=== PATIENT | male | born 1985 | race Hispanic/Latino ===

== ENCOUNTER 2017-06-15 13:07 | Emergency (ER) | payer SELFPAY ==
--- NOTE | 2017-06-15 15:12 | ER ---
Nurse's Notes [facility] Name: William Yang Age: 31 yrs Sex: Male : 1985 Arrival Date: 06/15/2017 Time: 13:08 Bed 12 Private MD: Diagnosis: URI with cough Presentation: 06/15 13:12 Presenting complaint: Patient states: "Thursday I started coughing and getting congested. lk1 Thursday I took some Amoxicillin from my old infection. Thursday I took more and was feeling drained. I took Zyrtec and Dimetapp for my cough and it helped. I feel fatigued when I eat and then it goes away. I think I am getting better, but I left work and need to be checked out. Maybe I have the flu.". Transition of care: patient was not received from another setting of care. Onset of symptoms was June 12, 2017. Initial Sepsis Screen: Does the patient meet any 2 criteria? No. Patient's initial sepsis screen is negative. Does the patient have a suspected source of infection? No. Patient initial sepsis screen negative. Care prior to arrival: None. 13:12 Method Of Arrival: Ambulatory lk1 13:12 Acuity: THADDEUS 4 lk1 Triage Assessment: 13:16 General: Appears in no apparent distress. General: Behavior is calm, cooperative, lk1 appropriate for age. Pain: Complains of pain in abdomen Pain currently is 8 out of 10 on a pain scale. Neuro: Reports weakness. Historical: - Allergies: 13:16 Tylenol; lk1 13:16 Aspirin; lk1 - PMHx: 13:16 GERD; lk1 - PSHx: 13:16 None; lk1 - Immunization history:: Adult Immunizations up to date. - Social history:: Smoking status: Patient/guardian denies using tobacco. Screenin:33 Abuse screen: Denies threats or abuse. Denies injuries from another. Nutritional ph screening: No deficits noted. Tuberculosis screening: No symptoms or risk factors identified. Fall Risk None identified. Assessment: 14:32 General: Appears in no apparent distress. comfortable, well groomed, Behavior is calm, ph cooperative, appropriate for age, Reports chills for 12-24 hours, Denies fever. Pain: Denies pain. Neuro: Level of Consciousness is awake, alert, obeys commands, Oriented to person, place, time, situation, Reports general weakness. Cardiovascular: Capillary refill < 3 seconds Patient's skin is warm and dry. Respiratory: Reports cough that is productive, Airway is patent Respiratory effort is even, unlabored, Respiratory pattern is regular, symmetrical, Breath sounds are clear bilaterally. Denies shortness of breath pain with cough. GI: No signs and/or symptoms were reported involving the gastrointestinal system. EENT: Reports nasal congestion nasal discharge. Derm: Skin is intact, is healthy with good turgor, Skin is pink, warm \\T\\ dry. Musculoskeletal: Circulation, motion, and sensation intact. Range of motion: intact in all extremities. 15:15 Reassessment: Verbal order by Dr. Alfonso... Dexamethasone 10 mg PO. rk2 Vital Signs: 13:17 BP 132 / 81; Pulse 101; Resp 16; Temp 97.6(TE); Pulse Ox 99% on R/A; Weight 81.65 kg lk1 (R); Height 5 ft. 6 in. (167.64 cm) (R); Pain 8/10; 13:17 Body Mass Index 29.05 (81.65 kg, 167.64 cm) lk1 ED Course: 13:08 Patient arrived in ED. as 13:15 Triage completed. lk1 13:18 Arm band placed on left wrist. lk1 14:13 Meghan Rubin, RN is Primary Nurse. ph 14:27 Edwin Alfonso MD is Attending Physician. ps1 14:34 Patient has correct armband on for positive identification. Bed in low position. Call ph light in reach. 14:34 No provider procedures requiring assistance completed. Patient did not have IV access ph during this emergency room visit. Administered Medications: 15:17 Drug: Dexamethasone 10 mg Route: PO; rk2 15:26 Follow up: Response: Given \\T\\ DC rk2 Outcome: 15:12 Discharge ordered by . ps1 15:25 Discharged to home ambulatory. rk2 15:25 Condition: good 15:25 Discharge instructions given to patient, Prescriptions given X 1. 15:26 Patient left the ED. rk2 Signatures: Lyubov Joaquin as Meghan Rubin, RN RN Rupali Pride RN RN lk1 Edwin Alfonso MD MD ps1 Krissy Hodge RN RN rk2
[2017-06-15] MEDS ORDERED: DEXAMETHASONE 10 MG/ML VIAL ONE (15:13)
--- NOTE | 2017-06-15 15:13 | EDPHYS ---
Physician Documentation [facility] Name: William Yang Age: 31 yrs Sex: Male : 1985 Arrival Date: 06/15/2017 Time: 13:08 Bed 12 Private MD: ED Physician Edwin Alfonso HPI: 06/15 15:05 This 31 yrs old Male presents to ER via Ambulatory with complaints of fatigue. ps1 15:06 The patient or guardian reports cough, flu symptoms, low-grade fever, myalgias, no ps1 appetite, sore throat. . Onset: The symptoms/episode began/occurred 4 day(s) ago. Severity of symptoms: At their worst the symptoms were mild, in the emergency department the symptoms have resolved. Modifying factors: The symptoms are alleviated by he took a couple of amoxicillin that he had at the house, a total of about 5. Started taking nyquil, a nasal medication, and some zyrtec and started feeling better. he started eating some food and just felt really fatigued and wanted to get checked out . Historical: - Allergies: 13:16 Tylenol; lk1 13:16 Aspirin; lk1 - PMHx: 13:16 GERD; lk1 - PSHx: 13:16 None; lk1 - Immunization history:: Adult Immunizations up to date. - Social history:: Smoking status: Patient/guardian denies using tobacco. ROS: 15:06 Constitutional: Negative for fever, chills, and weight loss, Eyes: Negative for injury, ps1 pain, redness, and discharge. 15:06 Cardiovascular: Negative for chest pain, palpitations, and edema, Abdomen/GI: Negative for abdominal pain, nausea, vomiting, diarrhea, and constipation, : Negative for injury, bleeding, discharge, and swelling, MS/Extremity: Negative for injury and deformity, Skin: Negative for injury, rash, and discoloration, Neuro: Negative for headache, weakness, numbness, tingling, and seizure. 15:06 Constitutional: Positive for body aches, fatigue. 15:06 ENT: Positive for sinus congestion, sore throat. 15:06 Respiratory: Positive for cough, with no reported sputum. Exam: 15:06 Constitutional: This is a well developed, well nourished patient who is awake, alert, ps1 and in no acute distress. Head/Face: Normocephalic, atraumatic. Eyes: Pupils equal round and reactive to light, extra-ocular motions intact. Lids and lashes normal. Conjunctiva and sclera are non-icteric and not injected. Chest/axilla: Normal chest wall appearance and motion. Nontender with no deformity. No lesions are appreciated. Cardiovascular: Regular rate and rhythm. No gallops, murmurs, or rubs. Normal PMI, no JVD. No pulse deficits. Respiratory: Lungs have equal breath sounds bilaterally, clear to auscultation and percussion. No rales, rhonchi or wheezes noted. No increased work of breathing, no retractions or nasal flaring. Abdomen/GI: Soft, non-tender, with normal bowel sounds. No distension or tympany. No guarding or rebound. No evidence of tenderness throughout. Skin: Warm, dry with normal turgor. Normal color with no rashes, no lesions, and no evidence of cellulitis. MS/ Extremity: Pulses equal, no cyanosis. Neurovascular intact. Full, normal range of motion. Neuro: Awake and alert, GCS 15, oriented to person, place, time, and situation. Cranial nerves II-XII grossly intact. Sensory grossly intact. Vital Signs: 13:17 BP 132 / 81; Pulse 101; Resp 16; Temp 97.6(TE); Pulse Ox 99% on R/A; Weight 81.65 kg lk1 (R); Height 5 ft. 6 in. (167.64 cm) (R); Pain 8/10; 13:17 Body Mass Index 29.05 (81.65 kg, 167.64 cm) lk1 MDM: 15:05 Patient medically screened. ps1 15:06 Data reviewed: vital signs, nurses notes. ps1 15:06 ED course: patient states that he is getting better. Will give decadron for symptoms. ps1 Took amoxicillin [employer]. Continue zyrtec. Follow up with PCP as necessary. . Administered Medications: 15:17 Drug: Dexamethasone 10 mg Route: PO; rk2 15:26 Follow up: Response: Given \T\ DC rk2 Disposition: 06/15/17 15:12 Discharged to Home. Impression: URI with cough. - Condition is Stable. - Discharge Instructions: Upper Respiratory Infection, Adult. - Prescriptions for chlorpheniramine maleate 4 mg Oral Tablet - take 1 tablet by ORAL route every 4-6 hours As needed; 30 tablet. - Medication Reconciliation Form, Thank You Letter, Antibiotic Education, Prescription Opioid Use, Work release form form. - Follow up: Private Physician; When: As needed; Reason: Recheck today's complaints, Continuance of care, Re-evaluation by your physician. Follow up: Emergency Department; When: As needed; Reason: Fever > 102 F, Trouble breathing, Worsening of condition. - Problem is an ongoing problem. - Symptoms have improved. Signatures: Rupali Pride, RN RN lk1 Edwin Alfonso MD MD ps1 Krissy Hodge RN RN rk2
[2017-06-15 15:29] VITALS: BP 132/81; TEMP 97.6; O2SAT 99
== END 2017-06-15 15:26 | disposition home or self-care (01) ==
LOC: ER 13:07
DX: J06.9 Acute upper respiratory infection, unspecified (principal); Z88.6 Allergy status to analgesic agent
CPT/HCPCS: 99283; J1100

== ENCOUNTER 2017-09-29 10:27 | Emergency (ER) | payer SELFPAY ==
--- NOTE | 2017-09-29 11:30 | ER ---
Nurse's Notes [facility] Name: William Yang Age: 32 yrs Sex: Male : 1985 Arrival Date: 09/29/2017 Time: 10:30 Bed 19 Private MD: None, None Diagnosis: Cough;Acute bronchiolitis Presentation: 09/29 10:40 Presenting complaint: Patient states: Cough for 2 weeks. Reports taking cough medicine aj last night. Patient reports that he feels run down and ill. Transition of care: patient was not received from another setting of care. Onset of symptoms was September 18, 2017. Risk Assessment: Do you want to hurt yourself or someone else? Patient reports no desire to harm self or others. Initial Sepsis Screen: Does the patient meet any 2 criteria? No. Patient's initial sepsis screen is negative. Does the patient have a suspected source of infection? No. Patient's initial sepsis screen is negative. Care prior to arrival: None. 10:40 Method Of Arrival: Ambulatory aj 10:40 Acuity: THADDEUS 4 aj Triage Assessment: 10:41 General: Appears in no apparent distress. comfortable, Behavior is calm, cooperative, aj appropriate for age. Pain: Denies pain. EENT: Reports nasal congestion nasal discharge. Neuro: Level of Consciousness is awake, alert, obeys commands, Oriented to person, place, time, situation, Appropriate for age. Respiratory: Reports cough that is persistent Airway is patent Trachea midline Respiratory effort is even, unlabored, Respiratory pattern is regular, symmetrical, Onset: The symptoms/episode began/occurred gradually, the patient has mild shortness of breath. Derm: Skin is intact, is healthy with good turgor, Skin is pink, warm \\T\\ dry. normal. Historical: - Allergies: 10:41 Aspirin; aj - Home Meds: 10:41 None [Active]; aj - PMHx: 10:41 GERD; aj - PSHx: 10:41 None; aj - Immunization history:: Adult Immunizations up to date. - Social history:: Smoking status: Patient uses tobacco products, denies chronic smoking, but will smoke occasionally, Patient uses alcohol, occasionally. - Ebola Screening: : Patient negative for fever greater than or equal to 101.5 degrees Fahrenheit, and additional compatible Ebola Virus Disease symptoms Patient denies exposure to infectious person Patient denies travel to an Ebola-affected area in the 21 days before illness onset No symptoms or risks identified at this time. - Family history:: not pertinent. Screenin:50 Abuse screen: Denies threats or abuse. Nutritional screening: No deficits noted. tw2 Tuberculosis screening: No symptoms or risk factors identified. Fall Risk None identified. Assessment: 10:49 General: Appears in no apparent distress. Behavior is calm, cooperative, appropriate tw2 for age. Pain: Complains of pain in "theres a dryness and itching in the back of my throat". Neuro: Level of Consciousness is awake, alert, obeys commands, Oriented to person, place, time, situation. Cardiovascular: Denies chest pain, shortness of breath, Heart tones S1 S2 Capillary refill < 3 seconds Patient's skin is warm and dry. Rhythm is regular. Respiratory: Reports cough that is non-productive, with itching in my throat Airway is patent Respiratory effort is even, unlabored, Respiratory pattern is regular, symmetrical, Breath sounds are clear bilaterally. GI: No signs and/or symptoms were reported involving the gastrointestinal system. Abdomen is round non-distended, Bowel sounds present X 4 quads. : No signs and/or symptoms were reported regarding the genitourinary system. EENT: No signs and/or symptoms were reported regarding the EENT system. Derm: Skin is intact, is healthy with good turgor, Skin temperature is warm. Musculoskeletal: Range of motion: intact in all extremities. 11:59 Reassessment: per Raya,Xray will be 10-15 minutes, instructed that xray is all we tw2 are waiting on. Reassessment: Patient appears in no apparent distress at this time. No changes from previously documented assessment. Patient and/or family updated on plan of care and expected duration. Pain level reassessed. Patient is alert, oriented x 3, equal unlabored respirations, skin warm/dry/pink. 12:17 Reassessment: xray done at this time, provider notified. tw2 12:26 Reassessment: Patient appears in no apparent distress at this time. No changes from tw2 previously documented assessment. Patient and/or family updated on plan of care and expected duration. Pain level reassessed. Patient is alert, oriented x 3, equal unlabored respirations, skin warm/dry/pink. Vital Signs: 10:41 BP 140 / 91; Pulse 95; Resp 16; Temp 98.2; Pulse Ox 97% on R/A; Weight 81.65 kg; Height aj 5 ft. 6 in. (167.64 cm); 11:59 BP 123 / 85; Pulse 76; Resp 17; Pulse Ox 99% on R/A; tw2 12:25 BP 120 / 91; Pulse 85; Resp 18; Pulse Ox 98% on R/A; tw2 10:41 Body Mass Index 29.05 (81.65 kg, 167.64 cm) ED Course: 10:30 Patient arrived in ED. mr 10:31 None, None is Private Physician. mr 10:41 Triage completed. aj 10:41 Arm band placed on left wrist. Patient placed in an exam room. aj 10:46 Jazz Mckinley, PEDRITO is Primary Nurse. tw2 10:48 Willie Beltrán MD is Attending Physician. [facility] 10:50 Bed in low position. Call light in reach. telemetry monitor on. Pulse ox on. NIBP on. tw2 11:47 Awaiting for x-ray, Awaiting: prior to discharge. tw2 12:25 X-ray completed. Portable x-ray completed in exam room. Patient tolerated procedure jb2 well. 12:26 CXR XRAY In Process Unspecified. EDMS 12:26 No provider procedures requiring assistance completed. Patient did not have IV access tw2 during this emergency room visit. Administered Medications: 11:28 Drug: Zithromax 500 mg Route: PO; tw2 11:59 Follow up: Response: No adverse reaction tw2 Outcome: 11:30 Discharge ordered by . ortega 12:26 Discharged to home ambulatory. tw2 12:26 Condition: stable 12:26 Discharge instructions given to patient, Instructed on discharge instructions, follow up and referral plans. medication usage, Demonstrated understanding of instructions, follow-up care, medications, Prescriptions given X 2. 12:27 Patient left the ED. tw2 Signatures: Dispatcher [employer] EDPeggy Arroyo, Willie Nolan RN, MD MD cha Rivera, Maria Lanie Robleroe jbYves Jazz Mckinley RN RN tw2
--- NOTE | 2017-09-29 11:30 | EDPHYS ---
Physician Documentation [facility] Name: William Yang Age: 32 yrs Sex: Male : 1985 Arrival Date: 09/29/2017 Time: 10:30 Bed 19 Private MD: None, None ED Physician Willie Beltrán HPI: 09/29 11:24 This 32 yrs old Male presents to ER via Ambulatory with complaints of Cough, ortega Breathing Difficulty. 11:24 The patient or guardian reports cough. Onset: The symptoms/episode began/occurred 3 ortega day(s) ago. Severity of symptoms: At their worst the symptoms were mild, moderate, in the emergency department the symptoms are unchanged. Modifying factors: The symptoms are alleviated by nothing, the symptoms are aggravated by smoke. Associated signs and symptoms: The patient has no apparent associated signs or symptoms. The patient has not experienced similar symptoms in the past. Historical: - Allergies: 10:41 Aspirin; aj - Home Meds: 10:41 None [Active]; aj - PMHx: 10:41 GERD; aj - PSHx: 10:41 None; aj - Immunization history:: Adult Immunizations up to date. - Social history:: Smoking status: Patient uses tobacco products, denies chronic smoking, but will smoke occasionally, Patient uses alcohol, occasionally. - Ebola Screening: : Patient negative for fever greater than or equal to 101.5 degrees Fahrenheit, and additional compatible Ebola Virus Disease symptoms Patient denies exposure to infectious person Patient denies travel to an Ebola-affected area in the 21 days before illness onset No symptoms or risks identified at this time. - Family history:: not pertinent. ROS: 11:24 Constitutional: Negative for fever, chills, and weight loss, Eyes: Negative for injury, ortega pain, redness, and discharge, ENT: Negative for injury, pain, and discharge, Neck: Negative for injury, pain, and swelling, Cardiovascular: Negative for chest pain, palpitations, and edema, Abdomen/GI: Negative for abdominal pain, nausea, vomiting, diarrhea, and constipation, Back: Negative for injury and pain, : Negative for injury, bleeding, discharge, and swelling, MS/Extremity: Negative for injury and deformity, Skin: Negative for injury, rash, and discoloration, Neuro: Negative for headache, weakness, numbness, tingling, and seizure, Psych: Negative for depression, anxiety, suicide ideation, homicidal ideation, and hallucinations, Allergy/Immunology: Negative for hives, rash, and allergies, Endocrine: Negative for neck swelling, polydipsia, polyuria, polyphagia, and marked weight changes, Hematologic/Lymphatic: Negative for swollen nodes, abnormal bleeding, and unusual bruising. 11:24 Respiratory: Positive for cough, shortness of breath, at rest. Exam: 11:24 Constitutional: This is a well developed, well nourished patient who is awake, alert, ortega and in no acute distress. Head/Face: Normocephalic, atraumatic. Eyes: Pupils equal round and reactive to light, extra-ocular motions intact. Lids and lashes normal. Conjunctiva and sclera are non-icteric and not injected. Cornea within normal limits. Periorbital areas with no swelling, redness, or edema. ENT: Nares patent. No nasal discharge, no septal abnormalities noted. Tympanic membranes are normal and external auditory canals are clear. Oropharynx with no redness, swelling, or masses, exudates, or evidence of obstruction, uvula midline. Mucous membranes moist. Neck: Trachea midline, no thyromegaly or masses palpated, and no cervical lymphadenopathy. Supple, full range of motion without nuchal rigidity, or vertebral point tenderness. No Meningismus. Chest/axilla: Normal chest wall appearance and motion. Nontender with no deformity. No lesions are appreciated. Cardiovascular: Regular rate and rhythm with a normal S1 and S2. No gallops, murmurs, or rubs. Normal PMI, no JVD. No pulse deficits. Respiratory: Lungs have equal breath sounds bilaterally, clear to auscultation and percussion. No rales, rhonchi or wheezes noted. No increased work of breathing, no retractions or nasal flaring. Abdomen/GI: Soft, non-tender, with normal bowel sounds. No distension or tympany. No guarding or rebound. No evidence of tenderness throughout. Back: No spinal tenderness. No costovertebral tenderness. Full range of motion. Male : Normal genitalia with no discharge or lesions. Skin: Warm, dry with normal turgor. Normal color with no rashes, no lesions, and no evidence of cellulitis. Vital Signs: 10:41 BP 140 / 91; Pulse 95; Resp 16; Temp 98.2; Pulse Ox 97% on R/A; Weight 81.65 kg; Height aj 5 ft. 6 in. (167.64 cm); 11:59 BP 123 / 85; Pulse 76; Resp 17; Pulse Ox 99% on R/A; tw2 12:25 BP 120 / 91; Pulse 85; Resp 18; Pulse Ox 98% on R/A; tw2 10:41 Body Mass Index 29.05 (81.65 kg, 167.64 cm) aj MDM: 10:48 Patient medically screened. [facility] 09/30 07:20 Data reviewed: radiologic studies. Test interpretation: by ED physician or midlevel [facility] provider:. 09/29 11:26 Order name: CXR XRAY; Complete Time: 07:20 bd Administered Medications: 09/29 11:28 Drug: Zithromax 500 mg Route: PO; tw2 11:59 Follow up: Response: No adverse reaction tw2 Disposition: 09/29/17 11:30 Discharged to Home. Impression: Cough, Acute bronchiolitis. - Condition is Stable. - Discharge Instructions: Cool Mist Vaporizer, Cough, Adult, [id number], Cough, Adult. - Prescriptions for Janet- D 12 Hour 60-120 mg Oral Tablet Sustained Release 12 hr - take 1 tablet by ORAL route every 12 hours As needed; 20 tablet. Zithromax Z- Parveen 250 mg Oral Tablet - take 1 tablet by ORAL route as directed for 5 days Day 1 - take two (2) tablets one time. Day 2, 3, 4 , 5 take one (1) tablet once daily.; 6 tablet. - Medication Reconciliation Form, Thank You Letter, Antibiotic Education, Prescription Opioid Use, Work release form form. - Follow up: Private Physician; When: 2 - 3 days; Reason: Recheck today's complaints, Continuance of care, Re-evaluation by your physician. - Problem is new. - Symptoms have improved. Signatures: Dispatcher [employer] Peggy Enriquez RN RN aj Anderson, Corey, MD MD cha Wise, Tara RN RN tw2 Corrections: (The following items were deleted from the chart) 12:27 11:30 09/29/2017 11:30 Discharged to Home. Impression: Cough; Acute bronchiolitis. tw2 Condition is Stable. Forms are Work release form, Medication Reconciliation Form, Thank You Letter, Antibiotic Education, Prescription Opioid Use. Follow up: Private Physician; When: 2 - 3 days; Reason: Recheck today's complaints, Continuance of care, Re-evaluation by your physician. Problem is new. Symptoms have improved. ortega
[2017-09-29] MEDS ORDERED: AZITHROMYCIN 250 MG TAB ONE (11:33)
[2017-09-29 12:33] VITALS: TEMP 98.2
[2017-09-29 12:36] VITALS: BP 120/91; O2SAT 98
--- NOTE | 2017-09-29 12:47 | RAD REPORT ---
EXAM DESCRIPTION: RAD - Chest Single View - 09/29/2017 12:25 pm CLINICAL HISTORY: Persistent 2 week cough history COMPARISON: January 2017 TECHNIQUE: AP portable chest image was obtained 1216 hours . FINDINGS: Lungs are clear. Heart and vasculature are normal. No measurable pleural effusion and no p neumothorax. No gross bony abnormality seen. No acute aortic findings suspected. IMPRESSION: No acute cardiopulmonary process. No significant interval change.
== END 2017-09-29 12:27 | disposition home or self-care (01) ==
LOC: ER 10:27
DX: J21.9 Acute bronchiolitis, unspecified (principal); Z72.0 Tobacco use; Z88.6 Allergy status to analgesic agent
CPT/HCPCS: 71045; 99284

== ENCOUNTER 2017-10-13 12:07 | Emergency (ER) | payer SELFPAY ==
--- NOTE | 2017-10-13 13:08 | RAD REPORT ---
EXAM DESCRIPTION: RAD - Neck Soft Tissue - 10/13/2017 12:54 pm CLINICAL HISTORY: Sore throat, soft tissue swelling COMPARISON: None. TECHNIQUE: Single lateral soft tissue neck exam performed. FINDINGS: No prevertebral soft tissue thickening. No foreign body or abnormal air density. Epiglot tis is normal. Tonsillar and adenoid tissue within normal limits as well. No disk or bony abnormali ty. IMPRESSION: Negative lateral soft tissue neck exam.
--- NOTE | 2017-10-13 14:27 | ER ---
Nurse's Notes [facility] Name: William Yang Age: 32 yrs Sex: Male : 1985 Arrival Date: 10/13/2017 Time: 12:10 Bed 19 Private MD: Diagnosis: Cough;Pain in throat Presentation: 10/13 12:15 Presenting complaint: Patient states: He came 2 weeks ago for a cough and he was aj1 diagnosed with bronchitis, he took a Z-Pack and Janet at home, when he finished the cough slowed down, but he is still coughing. Reports when he coughs hard it makes his throat swell and he has a hard time breathing. Denies fever. Denies SOB at this time. Respirations are even and unlabored. Transition of care: patient was not received from another setting of care. Onset of symptoms was September 30, 2017. Risk Assessment: Do you want to hurt yourself or someone else? Patient reports no desire to harm self or others. Initial Sepsis Screen: Does the patient meet any 2 criteria? No. Patient's initial sepsis screen is negative. Does the patient have a suspected source of infection? No. Patient's initial sepsis screen is negative. Care prior to arrival: None. 12:15 Method Of Arrival: Ambulatory aj1 12:15 Acuity: THADDEUS 4 aj1 Triage Assessment: 12:18 General: Appears in no apparent distress. comfortable, Behavior is calm, cooperative, aj1 appropriate for age. Pain: Complains of pain in diaphragm, left aspect of posterior pharynx and right aspect of posterior pharynx Pain currently is 8 out of 10 on a pain scale. Neuro: Level of Consciousness is awake, alert, obeys commands. Cardiovascular: Patient's skin is warm and dry. Respiratory: Airway is patent Respiratory effort is even, unlabored, Respiratory pattern is regular, symmetrical. Historical: - Allergies: 12:18 Aspirin; aj1 - Home Meds: 12:18 Prilosec Oral [Active]; aj1 - PMHx: 12:18 GERD; Anxiety; aj1 - PSHx: 12:18 None; aj1 - Immunization history:: Flu vaccine is not up to date. - Social history:: Smoking status: Patient uses tobacco products, denies chronic smoking, but will smoke occasionally. - Ebola Screening: : Patient denies travel to an Ebola-affected area in the days before illness onset. Screenin:28 Abuse screen: Denies threats or abuse. Denies injuries from another. Nutritional screening: No deficits noted. Tuberculosis screening: No symptoms or risk factors identified. Fall Risk None identified. Assessment: 13:28 General: Appears in no apparent distress. comfortable. Pain: Complains of pain in throat Pain currently is 5 out of 10 on a pain scale. Neuro: Level of Consciousness is awake, alert, obeys commands, Oriented to person, place, time, situation. Cardiovascular: Heart tones S1 S2 present. Respiratory: Reports cough that is intermittant, improved, for over 3 weeks now. Airway is patent Respiratory effort is even, unlabored. EENT: Reports nasal congestion since over a month pt reports coughing then feeling like his throat swells up. . Derm: Skin is pink, warm \T\ dry. 15:18 Reassessment: Patient appears in no apparent distress at this time. Patient and/or family updated on plan of care and expected duration. Pain level reassessed. Patient is alert, oriented x 3, equal unlabored respirations, skin warm/dry/pink. Vital Signs: 12:18 BP 129 / 91; Pulse 88; Resp 18; Temp 98.0; Pulse Ox 97% on R/A; Weight 81.65 kg (R); aj1 Height 5 ft. 6 in. (167.64 cm); Pain 8/10; 15:18 BP 128 / 84; Pulse 72; Resp 15; Temp 98.3; Pulse Ox 99% on R/A; Pain 6/10; ch 12:18 Body Mass Index 29.05 (81.65 kg, 167.64 cm) aj ED Course: 12:10 Patient arrived in ED. mr 12:17 Triage completed. aj1 12:18 Brisa Sol[facility]-C [facility]. kb 12:18 Willie Beltrán MD is Attending Physician. kb 12:18 Arm band placed on Patient placed in an exam room. aj1 12:21 Kayla Ness, PEDRITO is Primary Nurse. 12:45 X-ray completed. Patient tolerated procedure well. Patient moved to radiology via jb2 wheelchair. Patient moved back from radiology. 12:45 Patient has correct armband on for positive identification. Call light in reach. [facility] 12:45 Strep swab sent to lab. 5 12:45 Strep Sent. 5 12:46 Neck Soft Tissue XRAY In Process Unspecified. EDMS 13:28 No apparent distress. Resting quietly. 13:28 No provider procedures requiring assistance completed. Patient did not have IV access during this emergency room visit. Administered Medications: No medications were administered Outcome: 14:26 Discharge ordered by . svitlana 15:18 Discharged to home ambulatory. 15:18 Condition: stable 15:18 Discharge instructions given to patient, Instructed on discharge instructions, follow up and referral plans. medication usage, Demonstrated understanding of instructions, follow-up care. 15:20 Patient left the ED. Signatures: Dispatcher [employer] EDNE Brisa Solano, AGRONOMY SUPERVISOR-C AGRONOMY SUPERVISOR-Kayla Wong, PEDRITO RN Karo Mock RN RN Manisha Wright Jesse jb2 Martinez, Maria [facility]
--- NOTE | 2017-10-13 14:27 | EDPHYS ---
Physician Documentation [facility] Name: William Yang Age: 32 yrs Sex: Male : 1985 Arrival Date: 10/13/2017 Time: 12:10 Bed 19 Private MD: ED Physician Willie Beltrán HPI: 10/13 13:13 This 32 yrs old Male presents to ER via Ambulatory with complaints of Cough. kb 13:13 The patient or guardian reports cough, that is intermittent, described as moderate, kb with no sputum. Onset: The symptoms/episode began/occurred 2 week(s) ago. Severity of symptoms: At their worst the symptoms were mild, in the emergency department the symptoms are unchanged. Modifying factors: The symptoms are alleviated by nothing, the symptoms are aggravated by nothing. Associated signs and symptoms: Pertinent positives: sore throat, Pertinent negatives: chest pain, diarrhea, ear ache, fever, nausea, rhinorrhea, vomiting. The patient has not experienced similar symptoms in the past. The patient has been recently seen at the [facility] Emergency Department, a couple of weeks ago, for similar complaints. Pt states he was seen 2 weeks ago for a cough and diagnosed with bronchitis. States the cough has gotten better, but when he "coughs hard" he feels like his throat closes up and he can't breathe until he burps. . Historical: - Allergies: 12:18 Aspirin; aj1 - Home Meds: 12:18 Prilosec Oral [Active]; aj1 - PMHx: 12:18 GERD; Anxiety; aj1 - PSHx: 12:18 None; aj1 - Immunization history:: Flu vaccine is not up to date. - Social history:: Smoking status: Patient uses tobacco products, denies chronic smoking, but will smoke occasionally. - Ebola Screening: : Patient denies travel to an Ebola-affected area in the 21 days before illness onset. ROS: 13:12 Constitutional: Negative for fever, chills, and weight loss, Cardiovascular: Negative kb for chest pain, palpitations, and edema, Abdomen/GI: Negative for abdominal pain, nausea, vomiting, diarrhea, and constipation, Back: Negative for injury and pain, : Negative for injury, bleeding, discharge, and swelling, MS/Extremity: Negative for injury and deformity, Skin: Negative for injury, rash, and discoloration, Neuro: Negative for headache, weakness, numbness, tingling, and seizure. 13:12 ENT: Positive for sore throat, "swollen throat". 13:12 Respiratory: Positive for cough, Negative for dyspnea on exertion, hemoptysis, orthopnea, pleurisy, shortness of breath, sputum production, wheezing. Exam: 13:12 Constitutional: This is a well developed, well nourished patient who is awake, alert, kb and in no acute distress. Head/Face: Normocephalic, atraumatic. Chest/axilla: Normal chest wall appearance and motion. Nontender with no deformity. No lesions are appreciated. Cardiovascular: Regular rate and rhythm with a normal S1 and S2. No gallops, murmurs, or rubs. Normal PMI, no JVD. No pulse deficits. Respiratory: Lungs have equal breath sounds bilaterally, clear to auscultation and percussion. No rales, rhonchi or wheezes noted. No increased work of breathing, no retractions or nasal flaring. Abdomen/GI: Soft, non-tender, with normal bowel sounds. No distension or tympany. No guarding or rebound. No evidence of tenderness throughout. Skin: Warm, dry with normal turgor. Normal color with no rashes, no lesions, and no evidence of cellulitis. MS/ Extremity: Pulses equal, no cyanosis. Neurovascular intact. Full, normal range of motion. Neuro: Awake and alert, GCS 15, oriented to person, place, time, and situation. Cranial nerves II-XII grossly intact. Motor strength 5/5 in all extremities. Sensory grossly intact. Cerebellar exam normal. Normal gait. 13:12 ENT: Posterior pharynx: Airway: normal, Tonsils: with erythema, Uvula: normal, midline, swelling, is not appreciated, erythema, that is moderate. Vital Signs: 12:18 BP 129 / 91; Pulse 88; Resp 18; Temp 98.0; Pulse Ox 97% on R/A; Weight 81.65 kg (R); aj1 Height 5 ft. 6 in. (167.64 cm); Pain 8/10; 15:18 BP 128 / 84; Pulse 72; Resp 15; Temp 98.3; Pulse Ox 99% on R/A; Pain 6/10; ch 12:18 Body Mass Index 29.05 (81.65 kg, 167.64 cm) aj1 MDM: 12:20 Patient medically screened. kb 13:12 Data reviewed: vital signs, nurses notes. Data interpreted: Pulse oximetry: on room air kb is 97 %. Interpretation: normal. 14:25 Counseling: I had a detailed discussion with the patient and/or guardian regarding: the kb historical points, exam findings, and any diagnostic results supporting the discharge/admit diagnosis, lab results, radiology results, the need for outpatient follow up, a family practitioner, a sports agent, to return to the emergency department if symptoms worsen or persist or if there are any questions or concerns that arise at home. 10/13 12:36 Order name: Strep; Complete Time: 14:10 kb 10/13 13:52 Order name: Throat Culture EDMS 10/13 12:36 Order name: Neck Soft Tissue XRAY; Complete Time: 13:11 kb Administered Medications: No medications were administered Disposition: 10/14 07:01 Co-signature as Attending Physician, Willie Beltrán MD I agree with the assessment and [facility] plan of care. Disposition: 10/13/17 14:26 Discharged to Home. Impression: Cough, Pain in throat. - Condition is Stable. - Discharge Instructions: Cough, Adult, [id number], Sore Throat, [id number]. - Work release form, Medication Reconciliation Form, Thank You Letter, Antibiotic Education, Prescription Opioid Use form. - Follow up: Emergency Department; When: As needed; Reason: Worsening of condition. Follow up: Private Physician; When: 2 - 3 days; Reason: Recheck today's complaints, Continuance of care, Re-evaluation by your physician. Signatures: Dispatcher [employer] EDNJ Brisa Solano, INSTRUMENT CALIBRATOR-C INSTRUMENT CALIBRATOR-CkKayla Hernandez, RN RN Karo Mock RN RN aj1 Willie Beltrán MD MD [facility] Corrections: (The following items were deleted from the chart) 10/13 15:20 14:26 10/13/2017 14:26 Discharged to Home. Impression: Cough; Pain in throat. Condition ch is Stable. Forms are Medication Reconciliation Form, Thank You Letter, Antibiotic Education, Prescription Opioid Use. Follow up: Emergency Department; When: As needed; Reason: Worsening of condition. Follow up: Private Physician; When: 2 - 3 days; Reason: Recheck today's complaints, Continuance of care, Re-evaluation by your physician. kb
[2017-10-13 15:25] VITALS: BP 128/84; TEMP 98.3; O2SAT 99
== END 2017-10-13 15:20 | disposition home or self-care (01) ==
LOC: ER 12:07
DX: R05 Cough (principal); K21.9 Gastro-esophageal reflux disease without esophagitis; Z72.0 Tobacco use; Z88.6 Allergy status to analgesic agent
CPT/HCPCS: 70360; 87070; 87081; 99283

== ENCOUNTER 2018-05-06 16:14 | Emergency (ER) | payer SELFPAY ==
--- NOTE | 2018-05-06 17:40 | EDPHYS ---
Physician Documentation [facility] Name: William Yang Age: 32 yrs Sex: Male : 1985 Arrival Date: 05/06/2018 Time: 16:19 Bed DIS2 Private MD: ED Physician Joshua García HPI: 05/06 22:27 This 32 yrs old Male presents to ER via Ambulatory with complaints of Sore snw Throat, Runny Nose. 22:27 The patient presents with sore throat. The patient describes throat pain as raw. Onset: snw The symptoms/episode began/occurred suddenly, 2 day(s) ago, and became persistent. Modifying factors: The patient has had contact with sick daughter, son. Associated signs and symptoms: The patient has no apparent associated signs or symptoms. The patient has not experienced similar symptoms in the past. The patient has not recently seen a physician. Historical: - Allergies: 16:35 Aspirin; hb - Home Meds: 16:35 Prilosec Oral [Active]; hb - PMHx: 16:35 Anxiety; GERD; hb - PSHx: 16:35 None; hb - Immunization history:: Adult Immunizations up to date. - Social history:: Smoking status: Patient/guardian denies using tobacco. - Ebola Screening: : No symptoms or risks identified at this time. ROS: 22:26 Eyes: Negative for injury, pain, redness, and discharge. snw 22:26 Neck: Negative for injury, pain, and swelling, Cardiovascular: Negative for chest pain, palpitations, and edema, Respiratory: Negative for shortness of breath, cough, wheezing, and pleuritic chest pain, Abdomen/GI: Negative for abdominal pain, nausea, vomiting, diarrhea, and constipation, Back: Negative for injury and pain, : Negative for injury, bleeding, discharge, and swelling, MS/Extremity: Negative for injury and deformity, Skin: Negative for injury, rash, and discoloration, Neuro: Negative for headache, weakness, numbness, tingling, and seizure, Psych: Negative for depression, anxiety, suicide ideation, homicidal ideation, and hallucinations. 22:26 Constitutional: Positive for body aches, fatigue. 22:26 ENT: Positive for sore throat. Exam: 17:36 Constitutional: This is a well developed, well nourished patient who is awake, alert, snw and in no acute distress. Head/Face: Normocephalic, atraumatic. Eyes: Pupils equal round and reactive to light, extra-ocular motions intact. Lids and lashes normal. Conjunctiva and sclera are non-icteric and not injected. Cornea within normal limits. Periorbital areas with no swelling, redness, or edema. Neck: Trachea midline, no thyromegaly or masses palpated, and no cervical lymphadenopathy. Supple, full range of motion without nuchal rigidity, or vertebral point tenderness. No Meningismus. Chest/axilla: Normal chest wall appearance and motion. Nontender with no deformity. No lesions are appreciated. Cardiovascular: Regular rate and rhythm with a normal S1 and S2. No gallops, murmurs, or rubs. Normal PMI, no JVD. No pulse deficits. Respiratory: Lungs have equal breath sounds bilaterally, clear to auscultation and percussion. No rales, rhonchi or wheezes noted. No increased work of breathing, no retractions or nasal flaring. Abdomen/GI: Soft, non-tender, with normal bowel sounds. No distension or tympany. No guarding or rebound. No evidence of tenderness throughout. Back: No spinal tenderness. No costovertebral tenderness. Full range of motion. Skin: Warm, dry with normal turgor. Normal color with no rashes, no lesions, and no evidence of cellulitis. MS/ Extremity: Pulses equal, no cyanosis. Neurovascular intact. Full, normal range of motion. Neuro: Awake and alert, GCS 15, oriented to person, place, time, and situation. Cranial nerves II-XII grossly intact. Motor strength 5/5 in all extremities. Sensory grossly intact. Cerebellar exam normal. Normal gait. Psych: Awake, alert, with orientation to person, place and time. Behavior, mood, and affect are within normal limits. 17:36 ENT: External ear(s): are unremarkable, Ear canal(s): are normal, TM's: erythema, that is moderate, on the left, Nose: is normal, Mouth: is normal, Posterior pharynx: erythema, that is moderate, Voice: is normal. Vital Signs: 16:33 BP 139 / 94; Pulse 88; Resp 16; Temp 98.9; Pulse Ox 100% on R/A; Pain 6/10; hb MDM: 16:57 Patient medically screened. snw 22:25 Data reviewed: vital signs, nurses notes. Data interpreted: Pulse oximetry: on room air snw is 100 %. Interpretation: normal. Counseling: I had a detailed discussion with the patient and/or guardian regarding: the historical points, exam findings, and any diagnostic results supporting the discharge/admit diagnosis, the need for outpatient follow up, to return to the emergency department if symptoms worsen or persist or if there are any questions or concerns that arise at home. Response to treatment: There is no appreciated change of the patient's symptoms at this time. Special discussion: Based on the history and exam findings, there is no indication for further emergent testing or inpatient evaluation. I discussed with the patient/guardian the need to see the primary care provider for further evaluation of the symptoms. ED course: Pt's children with recent strep diagnosis. requests treatment for his s/s of strep even though screen here results as negative. 05/06 16:33 Order name: Flu; Complete Time: 17:36 hb 05/06 16:33 Order name: Strep; Complete Time: 17:28 hb 05/06 17:17 Order name: Throat Culture EDMS Administered Medications: No medications were administered Disposition: 05/07 07:00 Co-signature as Attending Physician, Joshua García MD I agree with the assessment and kdr plan of care. Disposition: 05/06/18 17:40 Discharged to Home. Impression: Acute pharyngitis. - Condition is Stable. - Discharge Instructions: Fever, Adult, Pharyngitis, Rehydration, Adult. - Prescriptions for Zithromax 500 mg Oral Tablet - take 1 tablet by ORAL route once daily for 5 days; 5 tablet. - Work release form, Medication Reconciliation Form, Thank You Letter, Antibiotic Education, Prescription Opioid Use form. - Follow up: Private Physician; When: 1 - 2 days; Reason: Recheck today's complaints, Continuance of care, Re-evaluation by your physician. Follow up: Emergency Department; When: As needed; Reason: Worsening of condition. Signatures: Dispatcher [employer] EDMS Joshua García MD MD kdr Therrien, Shelly, ROHIT-C TROLLEY WORKER-[place] Ivet Choi RN RN Leighann Kimble RN RN Corrections: (The following items were deleted from the chart) 05/06 18:02 17:40 05/06/2018 17:40 Discharged to Home. Impression: Acute pharyngitis. Condition is iw Stable. Forms are Medication Reconciliation Form, Thank You Letter, Antibiotic Education, Prescription Opioid Use. Follow up: Private Physician; When: 1 - 2 days; Reason: Recheck today's complaints, Continuance of care, Re-evaluation by your physician. Follow up: Emergency Department; When: As needed; Reason: Worsening of condition. snw
--- NOTE | 2018-05-06 17:40 | ER ---
Nurse's Notes [facility] Name: William Yang Age: 32 yrs Sex: Male : 1985 Arrival Date: 05/06/2018 Time: 16:19 Bed DIS2 Private MD: Diagnosis: Acute pharyngitis Presentation: 05/06 16:33 Presenting complaint: Sore throat, nonproductive cough, sinus pressure, fever, and body hb aches x 3 days. TMAX 101. Transition of care: patient was not received from another setting of care. Onset of symptoms was May 04, 2018. Risk Assessment: Do you want to hurt yourself or someone else? Patient reports no desire to harm self or others. Care prior to arrival: None. 16:33 Method Of Arrival: Ambulatory hb 16:33 Acuity: THADDEUS 4 hb 16:50 Initial Sepsis Screen: Does the patient meet any 2 criteria? No. Patient's initial iw sepsis screen is negative. Does the patient have a suspected source of infection? No. Patient's initial sepsis screen is negative. Triage Assessment: 18:00 General: Appears in no apparent distress. Behavior is calm. iw Historical: - Allergies: 16:35 Aspirin; hb - Home Meds: 16:35 Prilosec Oral [Active]; hb - PMHx: 16:35 Anxiety; GERD; hb - PSHx: 16:35 None; hb - Immunization history:: Adult Immunizations up to date. - Social history:: Smoking status: Patient/guardian denies using tobacco. - Ebola Screening: : No symptoms or risks identified at this time. Screenin:00 Abuse screen: Denies threats or abuse. Denies injuries from another. Nutritional iw screening: No deficits noted. Tuberculosis screening: No symptoms or risk factors identified. Fall Risk None identified. Assessment: 17:00 General: Appears Behavior is calm. Pain:. Neuro: Level of Consciousness is awake, iw alert, obeys commands, Moves all extremities. Full function. Cardiovascular: Patient's skin is warm and dry. Respiratory: Airway is patent Respiratory effort is even, unlabored, Breath sounds are clear bilaterally. EENT: Throat is reddened. Musculoskeletal: Range of motion: intact in all extremities. Vital Signs: 16:33 BP 139 / 94; Pulse 88; Resp 16; Temp 98.9; Pulse Ox 100% on R/A; Pain 6/10; hb ED Course: 16:19 Patient arrived in ED. rg4 16:26 Lily Schmidt FNP-C is [facility]. snw 16:27 Joshua García MD is Attending Physician. snw 16:35 Triage completed. hb 16:35 Arm band placed on. hb 16:42 flu and strep swabs sent from triage. hb 16:50 Patient has correct armband on for positive identification. iw 16:55 Ivet Choi, RN is Primary Nurse. iw 18:00 No provider procedures requiring assistance completed. Patient did not have IV access iw during this emergency room visit. Administered Medications: No medications were administered Outcome: 17:40 Discharge ordered by . snw 18:00 Discharged to home ambulatory, with family. iw 18:00 Condition: good 18:00 Discharge instructions given to patient, Instructed on discharge instructions, follow up and referral plans. medication usage, Demonstrated understanding of instructions, follow-up care, medications, Prescriptions given X 1. 18:02 Patient left the ED. iw Signatures: Lily Schmidt FNP-C NURSE PRACTITIONER PER DIEM-[place] Ivet Choi, RN RN Leighann Kimble, RN RN Komal Mayo rg4
[2018-05-06 19:42] VITALS: BP 139/94; TEMP 98.9; O2SAT 100
== END 2018-05-06 18:02 | disposition home or self-care (01) ==
LOC: ER 16:14
DX: J02.9 Acute pharyngitis, unspecified (principal); K21.9 Gastro-esophageal reflux disease without esophagitis; Z88.6 Allergy status to analgesic agent
CPT/HCPCS: 87070; 87081; 87804; 99282

== ENCOUNTER 2018-07-24 20:00 | Emergency (ER) | payer SELFPAY ==
--- NOTE | 2018-07-24 22:21 | ER ---
Nurse's Notes [facility] Name: William Yang Age: 32 yrs Sex: Male : 1985 Arrival Date: 07/24/2018 Time: 20:06 Bed Waiting Private MD: Diagnosis: Presentation: 07/24 20:06 Presenting complaint: Patient states: N/V/D since yesterday. Transition of care: la1 patient was not received from another setting of care. Onset of symptoms was July 24, 2018. Risk Assessment: Do you want to hurt yourself or someone else? Patient reports no desire to harm self or others. Initial Sepsis Screen: Does the patient meet any 2 criteria? No. Patient's initial sepsis screen is negative. Does the patient have a suspected source of infection? No. Patient's initial sepsis screen is negative. Care prior to arrival: None. 20:06 Method Of Arrival: Ambulatory la1 20:06 Acuity: THADDEUS 3 la1 Historical: - Allergies: 20:07 Aspirin; la1 - PMHx: 20:07 Anxiety; GERD; la1 - Immunization history:: Adult Immunizations up to date. - Social history:: Smoking status: Patient/guardian denies using tobacco. - Ebola Screening: : No symptoms or risks identified at this time. Vital Signs: 20:07 BP 136 / 78; Pulse 115; Resp 16; Temp 98.5; Pulse Ox 98% on R/A; Weight 89.81 kg; la1 Height 5 ft. 6 in. (167.64 cm); 20:07 Body Mass Index 31.96 (89.81 kg, 167.64 cm) la1 ED Course: 20:06 Patient arrived in ED. la1 20:06 Triage completed. la1 20:07 Arm band placed on left wrist. la1 22:14 Patient's name was called from ER lobby. No response. la1 22:18 Patient's name was called from ER lobby. No response. la1 Administered Medications: No medications were administered Outcome: 22:20 Patient left the ED. la1 Signatures: Stephon Colon RN RN la1
[2018-07-24 22:27] VITALS: BP 136/78; TEMP 98.5; O2SAT 98
== END 2018-07-24 22:20 | disposition left against medical advice (07) ==
LOC: ER 20:00
DX: R11.2 Nausea with vomiting, unspecified (principal); R19.7 Diarrhea, unspecified; F41.9 Anxiety disorder, unspecified; K21.9 Gastro-esophageal reflux disease without esophagitis; Z53.21 Procedure and treatment not carried out due to patient leaving prior to being seen by health care provider
CPT/HCPCS: 99281